=== PATIENT | female | born 1965 | race Caucasian/White ===

== ENCOUNTER 2021-01-15 08:13 | Emergency (ER) | payer SELFPAY ==
[~2021-01-15] VITALS: Ht 160 cm; Wt 151.7 kg
--- NOTE | 2021-01-15 08:57 | PHYS DOC ---
Past History Additional Past Medical Histor: Breast Cancer Past Surgical History: Tonsillectomy, Other Additional Past Surgical Histo: bilat mastectomy, D&C Alcohol Use: None General Adult EDM: Chief Complaint: ANXIETY/PANIC ATTACK HPI: HPI: 55-year-old female presents with anxiety and panic attacks. She has been having more frequent attacks over the last several days. She has had increased stress for a few months. Patient used to be on medication daily for anxiety but has been off of these meds for about a year. The patient is unemployed and did not have the money to go to a doctor to restart her medications. Patient also complains of chest tightness this morning and that is why she came to the ER. She is very tearful. No history of cardiac problems. Review of Systems: Review of Systems: Constitutional: Denies fever or chills Eyes: Denies change in visual acuity HENT: Denies nasal congestion or sore throat Respiratory: Denies cough or shortness of breath Cardiovascular: Chest pain GI: Denies abdominal pain, nausea, vomiting, bloody stools or diarrhea : Denies dysuria Musculoskeletal: Denies back pain or joint pain Integument: Denies rash Neurologic: Denies headache, focal weakness or sensory changes Endocrine: Denies polyuria or polydipsia Lymphatic: Denies swollen glands Psychiatric: Anxiety and panic attacks Allergies: Allergies: Allergies Coded Allergies Type Severity Reaction Last Updated Verified Sulfa (Sulfonamide Antibiotics) Allergy Unknown 01/15/21 Yes latex Allergy Unknown 01/15/21 Yes Physical Exam: PE: Constitutional: Well developed, well nourished, morbidly obese, no acute distress, non-toxic appearance. [] HENT: Normocephalic, atraumatic, bilateral external ears normal, oropharynx moist, no oral exudates, nose normal. [] Eyes: PERRLA, EOMI, conjunctiva normal, no discharge. [] Neck: Normal range of motion, no tenderness, supple, no stridor. [] Cardiovascular: Heart rate 97, regular rhythm, no murmur [] Lungs & Thorax: Bilateral breath sounds clear to auscultation [] Abdomen: Bowel sounds normal, soft, no tenderness, no masses, no pulsatile masses. [] Skin: Warm, dry, no erythema, no rash. [] Back: No tenderness, no CVA tenderness. [] Extremities: No tenderness, no cyanosis, no clubbing, ROM intact, no edema. [] Neurologic: Alert and oriented X 3, normal motor function, normal sensory function, no focal deficits noted. [] Psychologic: Affect tearful, judgement normal, mood very anxious. [] Current Patient Data: Vital Signs: Vital Signs Date Time Temp Pulse Resp B/P (MAP) Pulse Ox O2 Delivery O2 Flow Rate FiO2 01/15/21 08:20 98.8 114 22 159/102 97 Room Air EKG: EKG: Sinus rhythm, rate 93, normal axis, no ST elevation or depression. [] Radiology/Procedures: Radiology/Procedures: [] Impressions: EXAM: CHEST 1 VIEW History: Chest pain COMPARISON: 01/17/2008 TECHNIQUE: Single portable radiograph of the chest FINDINGS: The cardiac silhouette is unremarkable. The lungs are clear bilaterally. The costophrenic sulci are clear and well demarcated. IMPRESSION: No radiographic evidence of an acute cardiopulmonary process. Electronically signed by: Chip Leary MD (01/15/2021 9:19 AM) [id number] DICTATED AND SIGNED BY: CHIP LEARY MD DATE: 01/15/21 0915 CC: EMY CODY MD; MECHE HERNANDEZ DO ~MTH0 0 Heart Score: C/O Chest Pain: Yes HEART Score for Chest Pain: HEART Score for Chest Pain Response (Comments) Value History Slighlty/Non-Suspicious 0 ECG Nonspecific Repolarizatio 1 Age >45 - < 65 1 Risk Factors 1 or 2 Risk Factors 1 Troponin < Normal Limit 0 Total 3 Risk Factors: Risk Factors: DM, Current or recent (<one month) smoker, HTN, HLP, family history of CAD, obesity. Risk Scores: Score 0 - 3: 2.5% MACE over next 6 weeks - Discharge Home Score 4 - 6: 20.3% MACE over next 6 weeks - Admit for Clinical Observation Score 7 - 10: 72.7% MACE over next 6 weeks - Early Invasive Strategies Course & Med Decision Making: Course & Med Decision Making Pertinent Labs and Imaging studies reviewed. (See chart for details) The patient's labs are unremarkable. Her EKG is unremarkable. Her troponin is negative. Her chest x-ray is negative for acute findings. The patient has some chronic back pain I will treat her with a short course of [place] 5/325. The patient is extremely anxious. I gave her 1 mg of Ativan IV. We have given her resources with the [facility] and encouraged her to follow-up today if possible. She is stable for discharge at this time. [] Neto Disclaimer: Neto Disclaimer: This electronic medical record was generated, in whole or in part, using a voice recognition dictation system. Departure Departure: Impression: Primary Impression: Anxiety Additional Impression: Panic attacks Disposition: HOME / SELF CARE / HOMELESS Condition: STABLE Referrals: EMY CODY MD (PCP) Patient Instructions: Anxiety and Panic Attacks, [id number] Scripts Hydrocodone/Acetaminophen (Hydrocodone-Acetamin 5-325 mg) 1 Each Tablet 1 EACH PO Q4-6HRS PRN for PAIN, #10 TAB Prov: MECHE HERNANDEZ DO 01/15/21 MECHE HERNANDEZ DO Jan 15, 2021 08:57
--- NOTE | 2021-01-15 09:21 | RAD ---
EXAM: CHEST 1 VIEW History: Chest pain COMPARISON: 01/17/2008 TECHNIQUE: Single portable radiograph of the chest FINDINGS: The cardiac silhouette is unremarkable. The lungs are clear bilaterally. The costophrenic sulci are clear and well demarcated. IMPRESSION: No radiographic evidence of an acute cardiopulmonary process. Electronically signed by: Chip Leary MD (01/15/2021 9:19 AM) [id number]
--- NOTE | 2021-01-15 09:44 | EKG ---
[address] [address] Test Date: 2021-01-15 Test Time: 09:29:12 Pat Name: CALEB HERMOSILLO Department: Room: Gender: F Private Investigator Surveillance: ANI : 1965 Requested By: MECHE HERNANDEZ Order Number: [id number] Reading MD: Measurements Intervals [place] Rate: 93 P: 43 SD: 150 QRS: 10 QRSD: 76 T: 12 QT: 324 QTc: 405 Interpretive Statements SINUS RHYTHM R-S TRANSITION ZONE IN V LEADS DISPLACED TO THE LEFT OTHERWISE NORMAL ECG RI6.02 No previous ECG available for comparison
[2021-01-15] MEDS: IV NORMAL SALINE 1,000ML 1,000 ML IV ONE (10:07)
[2021-01-15 10:23] LABS: CALCIUM 8.9 mg/dL (8.5-10.1); CREATININE 0.7 mg/dL (0.6-1.0); GFR 87.2; POTASSIUM 4.9 mmol/L (3.5-5.1)
[2021-01-15 10:29] LABS: BASO # 0.2 x10^3/uL (0.0-0.2); BASO % 1 % (0-3); EOS # 0.3 x10^3/uL (0.0-0.7); EOS % 2 % (0-3); HEMOGLOBIN 12.9 g/dL (12.0-15.5); LYMPH # 2.2 x10^3/uL (1.0-4.8); LYMPH % 20 % (24-48); MEAN CORPUSCULAR HEMOGLOBIN 28 pg (25-35); MEAN CORPUSCULAR HGB CONC 33 g/dL (31-37); MEAN CORPUSCULAR VOLUME 85 fL (79-100); MONO # 0.8 x10^3/uL (0.0-1.1); MONO % 7 % (0-9); NEUT # 7.6 x10^3uL (1.8-7.7); NEUT % 69 % (31-73); PLATELET COUNT 349 x10^3/uL (140-400); RED CELL DISTRIBUTION WIDTH 14.5 % (11.5-14.5); WHITE BLOOD COUNT 10.9 x10^3/uL (4.0-11.0)
[2021-01-15 10:30] LABS: ALBUMIN 3.5 g/dL (3.4-5.0); ALBUMIN/GLOBULIN RATIO 0.9 (1.0-1.7); TOTAL BILIRUBIN 0.2 mg/dL (0.2-1.0); TOTAL PROTEIN 7.6 g/dL (6.4-8.2)
[2021-01-15 10:48] VITALS: BP 127/81
[2021-01-15] MEDS ORDERED: HYDR-2759 PO (11:09)
[2021-01-15] MEDS: HYDROcodone/APAP 5/325MG 1 TAB TABLET PO ONE (11:17)
== END 2021-01-15 11:26 | disposition home or self-care (01) ==
LOC: ER 08:13
DX: F41.9 Anxiety disorder, unspecified (principal); Z88.2 Allergy status to sulfonamides; Z91.040 Latex allergy status
CPT/HCPCS: 36415; 71045; 80053; 84484; 85025; 93005; 96361; 96374; 99285; J2060; J7030